=== PATIENT | male | born 1995 | race Caucasian/White ===

== ENCOUNTER 2024-03-31 06:38 | Emergency (ER) | payer OTHER ==
[~2024-03-31] VITALS: Ht 190.5 cm; Wt 110.9 kg
[2024-03-31 06:48] VITALS: BP 134/76; TEMP 98
[2024-03-31 07:12] VITALS: PULSE 70
== END 2024-03-31 07:12 | disposition home or self-care (01) ==
LOC: COL.ER 06:38
DX: Z71.1 Person with feared health complaint in whom no diagnosis is made (principal)